=== PATIENT | male | born 1985 | race Two or more races ===

== ENCOUNTER 2017-02-17 01:24 | Emergency (ER) | payer SELFPAY ==
[2017-02-17] MEDS: HYDROCODONE/APAP (5/325) TAB PO (04:28)
== END 2017-02-17 11:13 | disposition home or self-care (01) ==
LOC: FTE 01:24
DX: S00.03XA Contusion of scalp, initial encounter (principal); F17.210 Nicotine dependence, cigarettes, uncomplicated; S16.1XXA Strain of muscle, fascia and tendon at neck level, initial encounter; V49.40XA Driver injured in collision with unspecified motor vehicles in traffic accident, initial encounter
CPT/HCPCS: 99284